=== PATIENT | male | born 1990 | race Caucasian/White ===

== ENCOUNTER 2024-07-06 03:29 | Emergency (ER) | payer OTHER, SELFPAY ==
[2024-07-06 03:32] VITALS: BP 128/78
[2024-07-06 04:01] VITALS: BMI 22.3
[2024-07-06 04:10] VITALS: BP 128/78
[2024-07-06] MEDS: ZOFRAN 4 MG IV (04:21)
[2024-07-06] MEDS: TORADOL 15 MG IV (04:21)
[2024-07-06] MEDS: NSS 500 IV (04:21)
[2024-07-06 04:29] VITALS: BP 102/29
[2024-07-06 04:31] LABS: % Basophils 0.3 % (0-2); % Eosinophils 0.2 % (0-6); % Immature Granulocytes 0.4 % (0-0.5); % Lymphocytes 13.8 % (20.5-51.1); % Monocytes 11.9 % (1.7-9.3); % Neutrophils 73.4 % (42.2-75.2); Absolute Lymphocytes 1.5 10^3/uL (1.2-3.4); Absolute Monocytes 1.3 10^3/uL (0.1-0.6); Absolute Neutrophils 7.8 10^3/uL (1.4-6.5); Hematocrit 39.8 % (39.0-52.0); Hemoglobin 14.3 g/dL (13.0-18.0); Mean Corp Hgb Conc. 35.9 g/dL (33.0-37.0); Mean Corpuscular Volume 83.6 fL (80.0-94.0); Mean Platelet Volume 9.9 fL (7.4-10.4); Nucleated Red Blood Cells % 0 % (-); Platelet Count 309 10^3/uL (130-400); Red Blood Cell Count 4.76 10^6/uL (4.70-6.10); White Blood Cell Count 10.6 10^3/uL (4.8-10.8)
[2024-07-06 04:33] LABS: Urine Albumin 3+ (Neg - Trace); Urine Bilirubin Negative (Negative); Urine Character Slightly Cloudy (Clear); Urine Color Yellow; Urine Glucose Negative (Negative); Urine Ketone 1+ (Negative); Urine Leukocyte 1+ (Negative); Urine Nitrite Negative (Negative); Urine Occult Blood 4+ (Negative); Urine Urobilinogen Negative (Neg - 1+)
[2024-07-06 04:34] LABS: ALT (SGPT) 14 U/L (0-50); AST (SGOT) 21 U/L (17-59); Albumin 4.9 g/dl (3.5-5.0); Alkaline Phosphatase 59 U/L (38-126); Blood Urea Nitrogen 23 mg/dl (9-20); Calcium 10.3 mg/dl (8.4-10.2); Carbon Dioxide 31 mmol/L (22-30); Chloride 93 mmol/L (98-107); Estimated Creatinine Clearance 89 ml/min; Glucose 126 mg/dl (70-99); Lipase 61 U/L (23-300); Potassium 3.4 mmol/L (3.5-5.1); Sodium 137 mmol/L (135-145); Total Bilirubin 1.6 mg/dl (0.2-1.3); Total Protein 8.1 g/dl (6.3-8.2); eGFR > 60.00
--- NOTE | 2024-07-06 04:45 | ED.GENMED ---
History of Present Illness
General
Chief Complaint: Abdominal Pain
Source: patient
Exam Limitations: none
Time Seen by Provider: 07/06/24 04:38
Nursing documentation reviewed up to this point in time: agreed with
History of Present Illness
History of Present Illness:
34-year-old female with a past medical history of migraines, seizure disorder, tobacco use disorder, ADHD, PTSD presents emergency department today with concerns of diffuse abdominal pain, nausea and vomiting for the past 4 days. Patient reports
that this initially started as pain in his back and surgery to the front. He felt the pain is back bilaterally. No history of kidney stones. Denies any groin pain. He denies any fevers or chills. He denies any dysuria. He states that he again
started to have nausea and vomiting feels like this worsened his abdominal pain. He has no past history of intra-abdominal surgeries. Never had symptoms like this before. He not take anything for the pain. He does state he did have episode of
pink-tinged urine. He denies any chest pain, syncopal episodes.
Past History
Past History
ED Past Medical History: Psychiatric (Anxiety, depression), Other (Colitis) and Other (Seizures)
ED Past Surgical History: None; Negative Appendectomy or Bowel resection
Social History
Tobacco: Smoker
Alcohol: None
Drug: Marijuana, Cocaine and Narcotics
Personal: Single
Living: with family
Employment: Employed
Family History
Family History: Hypertension
Review of Systems
Review of Systems
All Other Systems: ROS reviewed and negative except as documented in HPI and ROS
Phy Exam
Physical Exam
Physical Exam:
General: Patient is well appearing and in no acute distress; non-toxic
Skin: Warm and dry, no rashes or lesions
Head: Normocephalic, atraumatic
Eyes: Sclera non-icteric. EOMs intact.
Cardiac: Regular rate and rhythm, no murmurs
Peripheral Vascular: No lower extremity swelling or edema
Pulm: Normal respiratory effort, no wheezes, rales, rhonchi
Abdomen: Diffuse abdominal tenderness palpation noted, no CVA tenderness, no palpable abdominal mass
Musculoskeletal: No midline spinal tenderness
Neuro: CN II-XII intact, no focal neurologic deficits.
Psychiatric: Appropriate mood and affect.
Course
Orders/Labs/Results
Orders:
Orders
07/06/24 04:08
Complete Blood Count/With Diff Urgent
Comprehensive Metabolic Panel Urgent
Lipase Urgent
Urinalysis Urgent
Date Specimen was Collected: 07/06/24
Time Specimen was Collected: 03:35
Urine Microscopic Urgent
Date Specimen was Collected: 07/06/24
Time Specimen was Collected: 03:35
07/06/24 04:15
Ketorolac [Toradol] 15 mg IV NOW STA
Ondansetron Injectable [Zofran] 4 mg IV NOW STA
07/06/24 04:16
0.9% Sodium Chloride 500 ml [Nss] 500 ml IV BOLUS
07/06/24 04:29
Electrocardiogram (*1) Urgent
Reason for Study: Chest Pain
EKG- Treatment ONCE
07/06/24 04:34
Add On- LAB Urgent
Tests Added?: Urine drug screen
07/06/24 04:57
CT Abd/pelvis W Iv Cont Urgent
Comment:
Reason For Exam: bilateral flank pain and lower ab pain
HYDROmorphone [Dilaudid] 0.5 mg IV NOW STA
07/06/24 05:04
Troponin I Urgent
07/06/24 06:27
Fentanyl, Urine Urgent
Urine Drug Abuse Screen Urgent
Abnormal Lab Results
07/06/24 07/06/24
04:08 06:27
Absolute Neuts (auto) 7.8 H 10^3/uL
(1.4-6.5)
Absolute Monos (auto) 1.3 H 10^3/uL
(0.1-0.6)
Lymphocytes % 13.8 L %
(20.5-51.1)
Monocytes % 11.9 H %
(1.7-9.3)
Potassium 3.4 L mmol/L
(3.5-5.1)
Chloride 93 L mmol/L
(98-107)
Carbon Dioxide 31 H mmol/L
(22-30)
BUN 23 H mg/dl
(9-20)
Glucose 126 H mg/dl
(70-99)
Calcium 10.3 H mg/dl
(8.4-10.2)
Total Bilirubin 1.6 H mg/dl
(0.2-1.3)
Urine Ketones 1+ A
(Negative)
Urine Occult Blood 4+ A
(Negative)
Ur Leukocyte Esterase 1+ A
(Negative)
Urine RBC 80-90 A /HPF
(0-2)
Urine WBC 11-15 A /HPF
(0-5)
Urine Bacteria Moderate A
(Negative)
Urine Albumin 3+ A
(Neg - Trace)
Urine Opiates Screen Positive H
(Negative)
U Marijuana (THC) Screen Positive H
(Negative)
07/06/24 04:08
07/06/24 04:08
Vital Signs
Initial and Last Documented VS:
Initial Vital Signs
Temp Pulse Resp BP Pulse Ox
98.4 F 60 22 128/78 100
07/06/24 03:32 07/06/24 03:32 07/06/24 03:32 07/06/24 03:32 07/06/24 03:32
Last Documented Vital Signs
Temp Pulse Resp BP Pulse Ox
98.4 F 69 16 124/80 98
07/06/24 03:32 07/06/24 07:24 07/06/24 07:24 07/06/24 07:24 07/06/24 07:24
MDM/Problems Addressed
Differential Diagnosis Includes:
Nephrolithiasis, gastroenteritis, appendicitis, colitis
MDM/Problems Addressed:
34-year-old male with a past medical history of migraines, epilepsy, ADHD, PTSD presents emergency department with concerns of abdominal pain. He also noticed blood in his urine. He denies any dysuria fevers or chills. Exam he is well-appearing
no acute distress. He has no leukocytosis. His urine shows no clear evidence of infection as there is evidence of contamination through squamous cells. Medication for antibiotics at this time. CT scan shows left-sided obstructing renal stone,
suspect this to be cause of patient's symptoms and persistent vomiting responsible for his diffuse abdominal pain. Patient with pain control here in the ER, vomiting has resolved. Patient stable for discharge. Did send prescription for Flomax and
Zofran to patient's pharmacy. Patient stable for discharge. Patient provided with strainer. Return precautions discussed.
Chronic conditions affecting care:
ADHD, anxiety, depression, PTSD
*Pulse Oximetry
Patient hypoxic: no
*Critical Care Note
Total Time (30-74mins, 75-104mins- exclusive of procedures): Not Applicable
Update Note
Update Note:
Update, patient did develop chest pain after administration of Toradol. Troponin undetectable, EKG shows no ischemic change
ED Attending Note
-
Portions of this chart may have been created with voice recognition software.� Occasional wrong word or��sound alike� substitutions may have occurred due to the inherent limitations of voice recognition software.
Discharge Plan
Departure
Patient Disposition: Home (Routine Discharge)
Date of Disposition: 07/06/24
Time of Disposition: 06:44
Patient with high blood pressure during this ER visit?: No
Condition: Good
Discharge Problem:
Calculus of distal left ureter
Instructions: Kidney stones in adults - ED discharge instructions, BLOOD PRESSURE
Prescriptions:
New
tamsulosin [Flomax] 0.4 mg capsule
0.4 mg PO DAILY Qty: 10 0RF
ondansetron HCl 4 mg tablet
4 mg PO Q4H PRN (Reason: nausea and vomiting) Qty: 10 0RF
Referrals:
Salome Tony MD [Family Provider] -
Andrzej Bansal MD [Active] - Call in 1-3 days for appt
Activity Restrictions/Additional Instructions:
Please call the attached number to schedule ointment to see urologist in follow-up.
Flomax has been sent to your pharmacy. Please take 1 tablet once daily until stone passage. Please strain your urine at home.
For pain, you can take 600 mg of ibuprofen every 6 hours as needed. Please do not exceed 3200 mg a day. You can alternate this with Tylenol.
Zofran has been sent to your pharmacy. You can take 1 tablet every 4 hours as needed for nausea vomiting
PLEASE RETURN EMERGENCY DEPARTMENT TO DEVELOP FEVERS OR CHILLS, PAIN WITH URINATION, ACUTE WORSENING OF HER SYMPTOMS, INTRACTABLE NAUSEA OR VOMITING, CHEST PAIN, SHORTNESS OF BREATH, OR ANY OTHER SYMPTOMS SYMPTOMS WORSEN YOU
Interventions
Interventions:
*Risk Screen - Suicide Last Done: 07/06/24 03:32
*General Assessment Last Done: 07/06/24 04:01
*Neglect/Abuse Screening Last Done: 07/06/24 03:32
*ED- Fall Risk Assessment Last Done: 07/06/24 04:01
*ED COVID-19 Vaccine History Last Done: 07/06/24 04:01
*Nursing Disposition Last Done: 07/06/24 07:25
KH-Mhfzhs-Hmuqlgxsml Assessment Last Done: 07/06/24 04:03
Discharge Date and Time
Discharge Date/Time: 07/06/24 07:26
Print Language: ROMANSH
[2024-07-06 04:47] LABS: Urine Mucus Moderate
[2024-07-06 04:51] LABS: Urine Red Blood Cell 80-90 /HPF (0-2)
[2024-07-06 04:52] LABS: Urine Bacteria Moderate (Negative)
[2024-07-06] MEDS: DILAUDID 0.5 MG IV (05:01)
[2024-07-06 05:05] VITALS: BP 116/73
[2024-07-06 05:55] LABS: Troponin I < 0.012 ng/ml
[2024-07-06 06:52] LABS: Amphetamines Negative (Negative); Barbiturates Negative (Negative); Benzodiazepines Negative (Negative); Buprenorphine Negative (Negative); Cocaine Negative (Negative); Marijuana Positive (Negative); Methadone Negative (Negative); Methamphetamines Negative (Negative); Opiates Positive (Negative); Phencyclidine Negative (Negative); Tricyclic Antidepressants Negative (Negative)
[2024-07-06 07:00] VITALS: BP 124/80
[2024-07-06 07:09] LABS: Fentanyl, Urine Negative (Negative)
[2024-07-06 07:24] VITALS: BP 124/80
== END 2024-07-06 07:26 | disposition home or self-care (01) ==
LOC: EMR 03:29
PROVIDERS: Physician Assistant; EMERGENCY PHYSICIAN Emergency Medicine; FAMILY PHYSICIAN Emergency Medicine
DX: N20.1 Calculus of ureter (principal); R07.9 Chest pain, unspecified; G43.909 Migraine, unspecified, not intractable, without status migrainosus; G40.909 Epilepsy, unspecified, not intractable, without status epilepticus; F90.9 Attention-deficit hyperactivity disorder, unspecified type; F43.10 Post-traumatic stress disorder, unspecified; F32.A Depression, unspecified; F41.9 Anxiety disorder, unspecified; K52.9 Noninfective gastroenteritis and colitis, unspecified; F17.210 Nicotine dependence, cigarettes, uncomplicated; F41.0 Panic disorder [episodic paroxysmal anxiety]; Z88.1 Allergy status to other antibiotic agents; Z88.8 Allergy status to other drugs, medicaments and biological substances; Z91.018 Allergy to other foods
CPT/HCPCS: 99284; 96375 ×2; 96361; 96374; 74177; 80053; 80306; 80307; 81003; 81015; 83690; 84484; 85025; 93005; Q9967

== ENCOUNTER 2024-07-07 22:43 | Emergency (ER) | payer OTHER, SELFPAY ==
[2024-07-07 22:48] VITALS: BP 124/66
[2024-07-07 23:08] LABS: % Basophils 0.1 % (0-2); % Eosinophils 0.1 % (0-6); % Immature Granulocytes 0.3 % (0-0.5); % Lymphocytes 21.8 % (20.5-51.1); % Monocytes 8.1 % (1.7-9.3); % Neutrophils 69.6 % (42.2-75.2); Absolute Lymphocytes 1.5 10^3/uL (1.2-3.4); Absolute Monocytes 0.6 10^3/uL (0.1-0.6); Absolute Neutrophils 4.8 10^3/uL (1.4-6.5); Hematocrit 36.4 % (39.0-52.0); Hemoglobin 13.2 g/dL (13.0-18.0); Mean Corp Hgb Conc. 36.3 g/dL (33.0-37.0); Mean Corpuscular Hgb 29.9 pg (27.0-31.0); Mean Corpuscular Volume 82.5 fL (80.0-94.0); Mean Platelet Volume 9.2 fL (7.4-10.4); Nucleated Red Blood Cells % 0 % (-); Platelet Count 307 10^3/uL (130-400); Red Blood Cell Count 4.41 10^6/uL (4.70-6.10); Red Cell Dist. Width 11.9 % (11.5-14.5); White Blood Cell Count 6.9 10^3/uL (4.8-10.8)
[2024-07-07 23:19] LABS: ALT (SGPT) 13 U/L (0-50); AST (SGOT) 18 U/L (17-59); Albumin 4.6 g/dl (3.5-5.0); Alkaline Phosphatase 54 U/L (38-126); Blood Urea Nitrogen 16 mg/dl (9-20); Calcium 10.1 mg/dl (8.4-10.2); Carbon Dioxide 33 mmol/L (22-30); Chloride 91 mmol/L (98-107); Glucose 120 mg/dl (70-99); Potassium 3.2 mmol/L (3.5-5.1); Sodium 135 mmol/L (135-145); Total Bilirubin 1.8 mg/dl (0.2-1.3); Total Protein 7.4 g/dl (6.3-8.2); eGFR > 60.00
[2024-07-08 00:33] VITALS: BMI 22.1
[2024-07-08] MEDS: ZOFRAN 4 MG IV (00:37)
--- NOTE | 2024-07-08 01:18 | ED.GENMED ---
History of Present Illness
General
Chief Complaint: Flank Pain
Source: patient
Exam Limitations: none
Time Seen by Provider: 07/08/24 00:44
Nursing documentation reviewed up to this point in time: agreed with
History of Present Illness
History of Present Illness:
34-year-old male here for worsening abdominal pain, nausea and vomiting. Pain mainly in the right abdomen but spreading across entire abdomen, was here yesterday with left flank pain and diagnosed with a 5 mm stone in the distal UVJ. He was
discharged on tamsulosin and ondansetron. His mom, at bedside admits she was concerned about the narcotics and asked that he not be prescribed any. Pt states he was trying to be nice and not argue with his mom so didn't take any.
States his temperature was 99 4.
Past History
Past History
ED Past Medical History: Psychiatric (Anxiety, depression), Other (Colitis) and Other (Seizures)
ED Past Surgical History: None; Negative Appendectomy or Bowel resection
Social History
Tobacco: Smoker
Alcohol: None
Drug: Marijuana, Cocaine and Narcotics
Personal: Single
Living: with family
Employment: Employed
Family History
Family History: Hypertension
Review of Systems
Review of Systems
Allergies reviewed?: Yes
All Other Systems: ROS reviewed and negative except as documented in HPI and ROS
Constitutional: Reports fever (Reports low-grade fever); Denies chills
Respiratory: Denies trouble breathing
Cardiac: Denies chest pain
ABD/GI: Reports abdominal pain, nausea and vomiting; Denies diarrhea
: Denies dysuria, frequency or difficulty voiding
Musculoskeletal: Reports no symptoms
Skin: Reports no symptoms
Neurological: Reports no symptoms
Phy Exam
Physical Exam
Physical Exam:
GENERAL: Mild distress due to abdominal pain. A&Ox3.
CONSTITUTIONAL: Afebrile.
RESPIRATORY: Regular respirations, nonlabored, lungs clear.
CARDIOVASCULAR: Regular rate and rhythm, no murmurs, no rubs.
GI: Soft, generally tender to palpation about the entire abdomen, worse on right. Nondistended, normal BS
MUSCULOSKELETAL: Moves with ease. Well perfused.
SKIN: Warm, dry, pink
PSYCH: Anxious mood and affect. Well kept, interactive and appropriate
NEUROLOGIC: Awake, alert and oriented. No focal neurological deficits
Course
Orders/Labs/Results
Orders:
Orders
07/07/24 22:57
CMP [Comprehensive Metabolic Panel] Urgent
Complete Blood Count/With Diff Urgent
07/08/24 00:30
Ondansetron Injectable [Zofran] 4 mg .ROUTE .STK-MED ONE
07/08/24 00:37
Ondansetron Injectable [Zofran] 4 mg IV NOW STA
07/08/24 00:45
CR Abdomen - 1 View Urgent
Comment:
Reason For Exam: check 5 mm stone seen yesterday on CT
Abnormal Lab Results
07/07/24
22:57
RBC 4.41 L 10^6/uL
(4.70-6.10)
Hct 36.4 L %
(39.0-52.0)
Potassium 3.2 L mmol/L
(3.5-5.1)
Chloride 91 L mmol/L
(98-107)
Carbon Dioxide 33 H mmol/L
(22-30)
Glucose 120 H mg/dl
(70-99)
Total Bilirubin 1.8 H mg/dl
(0.2-1.3)
07/07/24 22:57
07/07/24 22:57
Vital Signs
Initial and Last Documented VS:
Initial Vital Signs
Temp Pulse Resp BP Pulse Ox
99.8 F 70 18 124/66 98
07/07/24 22:48 07/07/24 22:48 07/07/24 22:48 07/07/24 22:48 07/07/24 22:48
Last Documented Vital Signs
Temp Pulse Resp BP Pulse Ox
99.8 F 70 18 124/66 98
07/07/24 22:48 07/07/24 22:48 07/07/24 22:48 07/07/24 22:48 07/08/24 00:39
MDM/Problems Addressed
MDM/Problems Addressed:
34-year-old male here for worsening abdominal pain, nausea and vomiting. Pain mainly in the right abdomen but spreading across entire abdomen, was here yesterday with left flank pain and diagnosed with a 5 mm stone in the distal UVJ. He was
discharged on tamsulosin and ondansetron. His mom, at bedside admits she was concerned about the narcotics and asked that he not be prescribed any. Pt states he was trying to be nice and not argue with his mom so didn't take any.
States his temperature was 99 4.
Temperature 99.8 moderately uncomfortable
CAT scan of abdomen pelvis with IV contrast done yesterday report reviewed: Approximate 5 mm stone at the distal left UVJ with mild to moderate left hydroureteronephrosis.
Flatplate abdomen x-ray today reveals:
CBC normal
CMP unremarkable
Patient and mother at bedside both agree to pain medication prescription being sent to his pharmacy.
ED Attending Note
-
Portions of this chart may have been created with voice recognition software.� Occasional wrong word or��sound alike� substitutions may have occurred due to the inherent limitations of voice recognition software.
Discharge Plan
Departure
Prescriptions:
No Action
tamsulosin [Flomax] 0.4 mg capsule
0.4 mg PO DAILY Qty: 10 0RF
ondansetron HCl 4 mg tablet
4 mg PO Q4H PRN (Reason: nausea and vomiting) Qty: 10 0RF
Referrals:
Salome Tony MD [Family Provider] -
Interventions
Interventions:
*Risk Screen - Suicide Last Done: 07/07/24 22:48
*General Assessment Last Done: 07/07/24 22:48
*Neglect/Abuse Screening Last Done: 07/08/24 00:24
*ED- Fall Risk Assessment Last Done: 07/07/24 22:48
*ED COVID-19 Vaccine History Last Done: 07/07/24 22:48
OH-Tseqhi-Vqnrkvzyac Assessment Last Done: 07/08/24 00:39
ED-Male Genitourinary Assessment Last Done: 07/08/24 00:39
Discharge Date and Time
Print Language: [place]
[2024-07-08] MEDS: MORPHINE SULFATE 4 MG IV (01:42)
[2024-07-08] MEDS: ZOFRAN ODT (ORALLY DISINTEGRATING) 4 MG PO (01:42)
[2024-07-08 01:49] VITALS: BP 125/59
[2024-07-08 01:53] LABS: Urine Albumin 1+ (Neg - Trace); Urine Bilirubin Negative (Negative); Urine Character Clear (Clear); Urine Color Yellow; Urine Glucose Negative (Negative); Urine Ketone 3+ (Negative); Urine Leukocyte 1+ (Negative); Urine Nitrite Negative (Negative); Urine Occult Blood 4+ (Negative); Urine Specific Gravity 1.005 (<1.030); Urine Urobilinogen 2+ (Neg - 1+)
[2024-07-08 03:30] LABS: Urine Bacteria Few (Negative); Urine Red Blood Cell 16-20 /HPF (0-2); Urine Squamous Cell 0-2 /LPF (Few)
== END 2024-07-08 02:02 | disposition home or self-care (01) ==
LOC: EMR 22:43
PROVIDERS: Emergency Medicine; Registered Nurse; EMERGENCY PHYSICIAN Emergency Medicine; FAMILY PHYSICIAN Emergency Medicine
DX: N13.2 Hydronephrosis with renal and ureteral calculous obstruction (principal); R11.2 Nausea with vomiting, unspecified; F17.200 Nicotine dependence, unspecified, uncomplicated
CPT/HCPCS: 96374; 96375; 99284; 74018; 80053; 81003; 81015; 85025; 87086